=== PATIENT | male | born 1945 | race Caucasian/White ===

== ENCOUNTER 2020-03-31 07:28 | Inpatient (IN) | payer MEDICARE, SELFPAY ==
[2020-03-31] VITALS (13 sets, daily range): BP systolic 108–139; BP diastolic 70–94; PULSE 65–93; RESP 16–29; TEMP 36.8–37.2; O2SAT 92–97; BMI 29.5; BMI 24.1
--- NOTE | 2020-03-31 07:40 | EKG12_ITS ---
Test Reason : SOB Blood Pressure : / mmHG Vent. Rate : 064 BPM Atrial Rate : 064 BPM P-R Int : 180 ms QRS Dur : 078 ms QT Int : 372 ms P-R-T Axes : -01 -06 009 degrees QTc Int : 383 ms Normal sinus rhythm Nonspecific T wave abnormality Abnormal ECG Confirmed by ALAN TORRES, EMORY ([id number]), continuity editor ABDELRAHMAN PEREZ ([id number]) on 04/02/2020 12:59:04 PM Referred By: Confirmed By:EMORY PHILLIPS MD
--- NOTE | 2020-03-31 07:40 | RAD_ITS ---
STUDY: X-RAY CHEST REASON FOR EXAM: Male, 75 years old. Cough, nausea and vomiting, possible aspiration, weakness TECHNIQUE: AP portable upright chest COMPARISON: None. FINDINGS: Background pulmonary hyperlucency consistent with underlying COPD/emphysema. Correlate smoking history. Mild basilar atelectasis. A few tiny radiodense pulmonary nodules are consistent with benign calcified granulomata. There is no acute infiltrate, effusion or pneumothorax. No significant cardiomegaly. There is an expandable prosthetic valve. Mediastinal silhouette, kayla and pleural margins normal. No acute osseous or upper abdominal process. RAD/Chest 1 View (Portable) IMPRESSION: Evidence of underlying COPD/emphysema without acute superimposed cardiopulmonary process. Electronically Signed: Lemuel Gtz MD at 11:00 EDT Tel , Service support ,
--- NOTE | 2020-03-31 07:53 | ED.VISSUMM ---
- ER Visit Summary Date of Service: 03/31/20 Chief Complaint: Vomiting, shortness of breath History of Present Illness: The patient is a 75 M presents [facility] with vomiting and shortness of breath. Patient states he had 2 episodes of vomiting since this morning. He began coughing. group home was concerned that he aspirated. He became short of breath after the vomiting episodes. He denies fever. Denies diarrhea. Denies abdominal pain. He does complain of mild headache and mild myalgias. No known exposure to COVID. He has a history of CHF, COPD, diabetes, hypertension, hypercholesterolemia. Physical Examination: Vitals are stable. Patient is afebrile. 95% on 2 L. Alert no acute distress. HEENT exam is unremarkable. Neck is supple. Lungs are expiratory wheezing bilaterally. Heart is regular rate and rhythm. Abdomen is soft mild left upper quadrant tenderness with no guarding or rebound Extremities are unremarkable. Skin is warm and dry. No focal neurologic deficit. Remainder of exam is unremarkable. Emergency Department Course and Treatment: Patient was given albuterol, Atrovent aerosols. EKG is normal sinus rhythm with nonspecific T wave changes. CBC shows white count 12.0. Chemistries show glucose 131, BUN 25. Lipase 150. Urinalysis with 5-10 white blood cells, positive leukocytes. Urine culture was sent. Troponin is negative. BNP normal. COVID negative. Chest xray shows evidence of underlying COPD/emphysema without acute superimposed cardiopulmonary process. CT abdomen shows colonic fecal retention predominantly within the rectal vault. No small bowel obstruction. Patient had additional vomiting in the ED and was given Zofran IV. He was given Unasyn for possible aspiration. Discussed with the hospitalist for admission. Disposition: Admission Impression: Vomiting, aspiration, UTI This note was generated with [employer] dictation software. It may contain incorrect words, spelling, and punctuation that were not noted in review of the chart prior to signing ED Disposition - Plan for ED Patient:
[2020-03-31] MEDS: Albuterol 2.5 MG/3 ML VIAL.NEB. INHALATION ×3 (08:02)
[2020-03-31] MEDS: Ipratropium/Albuterol Sulfate 3 ML AMPUL.NEB INHALATION ×2 (08:02→18:48)
[2020-03-31 08:34] LABS: Absolute Lymphocyte Count 3.44 X10^3/uL (0.83-4.51); Absolute Neutrophil Count 7.7 X10^3/uL (2.0-7.7); Basophil# 0.03 X10^3/uL; Basophil% 0.3 % (0-1); Eosinophil# 0.05 X10^3/uL; Eosinophils% 0.4 % (0-5); Hematocrit 45.9 % (40-54); Hemoglobin 14.7 g/dL (13.0-16.5); Lymphocyte # 3.44 X10^3/ul (4.0); Lymphocyte % 28.7 % (19-41); Mean Corpuscular Hgb 31.3 pg (27.0-32.0); Mean Corpuscular Volume 97.7 fL (80-94); Mean Platelet Vol. 9.5 fl (6.2-12.0); Monocyte# 0.73 X10^3/uL; Monocyte% 6.1 % (0-10); NRBC Flagged by Analyzer 0 % (0-5); Neutrophil # 7.67 X10^3/uL (2.7-7.7); Neutrophil % 64.1 % (47-70); Platelet Count 250 K/mm3 (150-450); RBC Distribution Width CV 13.5 % (11.6-14.6); RBC Distribution Width SD 48.9 fl (35.1-43.9)
[2020-03-31 08:51] LABS: BNP,B-Type NATRIURETIC PEPTIDE 23.7 pg/mL (0-100)
[2020-03-31 09:29] LABS: ALB/GLOB Ratio 0.7 RATIO (0.9-2.4); AST(SGOT) 25 U/L (15-37); Alanine Aminotransfer ALT/SGPT 15 U/L (16-61); Albumin, Serum 3.6 g/dL (3.2-5.0); Alkaline Phosphatase 101 U/L (45-117); Anion Gap 6 (5-15); BUN 25 mg/dL (7-18); BUN/Creat Ratio 22.1 RATIO (10-20); Calcium,Total 9.7 mg/dL (8.5-10.1); Chloride 102 mmol/L (98-107); Creatinine, Serum 1.13 mg/dL (0.70-1.30); EST Glomerular Filtration Rate 67 mL/min (>60); Est Glom Filt Rate - Afr Amer 81 mL/min (>60); Estimated Creatinine Clearance 48.38 ml/min; Globulin 5.1 g/dL (2.2-4.2); Glucose 131 mg/dL (74-106); Lipase 150 U/L (73-393); Potassium 4.3 mmol/L (3.5-5.1); Protein, Total 8.7 g/dL (6.4-8.2); Sodium Level 138 mmol/L (136-145)
[2020-03-31 10:44] LABS: Bacteria 0 SEEN /hpf (None Seen); Mucous, Urine 0 SEEN /hpf (<or=2+); Squamous Epithelial Cells - UA 0 SEEN /hpf (0-5)
--- NOTE | 2020-03-31 10:50 | CT_ITS ---
STUDY: CT ABDOMEN AND PELVIS WITH CONTRAST REASON FOR EXAM: Male, 75 years old. ABD PAIN, COUGH, N/V, ? ASPIRATION, HX-CHF,HTN,COPD, DB, PREV APPY RADIATION DOSAGE (If Supplied By Facility): CTDIvol = ( 20.27 ) mGy, DLP = ( 857.14 ) mGycm TECHNIQUE: Transaxial images were obtained from the dome of the diaphragm to the symphysis pubis without oral contrast. 100ML ISOVUE 300 was administered. Sagittal and coronal images were reconstructed. Individualized dose optimization techniques were used for this CT. COMPARISON: None. FINDINGS: There are chronic interstitial fibrotic changes of the lung bases. Aortic valve device partially visualized. Normal liver. Normal gallbladder and extrahepatic biliary system. Normal spleen. Normal pancreas. Normal bilateral adrenal glands. Normal right kidney. Normal left kidney. Normal visualized stomach. No dilated small bowel. Significant fecal residue throughout the colon including the rectum which is moderately distended. No perirectal stranding. There is anterior displacement of the urinary bladder via the rectum (sagittal 79). No pneumatosis. There is non-visualization of the appendix. There is diffuse atherosclerotic calcification of the abdominal aorta, without a demonstrated aneurysm. Normal inferior vena cava. Normal retroperitoneum. Normal urinary bladder. Normal abdominal wall. There are diffuse degenerative changes of the visualized lumbar spine. CT/Abdomen/Pelvis W IV Cont ONLY IMPRESSION: 1. Colonic fecal retention predominantly within the rectal vault. No small bowel obstruction. Electronically Signed: Rene Carroll MD (Brooks) at 13:42 EDT , Service support ,
[2020-03-31 10:52] LABS: Color, Urine Yellow (Yellow); Glucose, Dipstick Normal (Normal); Ketone-Dipstick Negative (Negative); Leukocyte Esterase-Dipstick 500 /ul (Negative); Nitrite-Dipstick Negative (Negative); Occult Blood-Urine 50 /ul (Negative); Protein-Dipstick 30 mg/dl (Negative); Urine Bilirubin Dipstick Negative (Negative); Urine Clarity Clear (Clear); Urine Urobilinogen Normal (Normal)
[2020-03-31 10:59] LABS: Red Blood Cells-Urine 0-5 SEEN /hpf (0-5); White Blood Cells 5-10 SEEN /hpf (0-5)
[2020-03-31] MEDS: Ondansetron 4 MG/2 ML Vial IV (11:05)
--- NOTE | 2020-03-31 15:03 | PCM.HP.STD ---
Problem List (1) Chronic heart failure Status: Chronic (2) Diabetes mellitus type 2 Status: Chronic (3) Dyslipidemia Status: Chronic (4) COPD Status: Chronic (5) Coronary artery disease Status: Chronic (6) Valvular heart disease Status: Chronic (7) Possible aspiration Status: Acute History of Present Illness Date of Admission: 03/31/20 Chief Complaint: Nausea, shortness of breath and wheezing. The patient is a 75 with multiple comorbidities but no prior admission in this hospital, valve replacement possible TAVR, intermediate patient was sent from [facility] for nausea, vomiting and shortness of breath. Patient denies chest pressure/pain or fever or chills or recent cough but when patient vomited he had sudden cough and therefore concern for aspiration. In intermediate, blood pressure was 112/63, heart rate 63/min. Pulse ox 95% on 2 L oxygen In ED, patient blood pressure was normal. Patient tachypneic 24 to 28/min, on 2 L of oxygen. Chest x-ray does not show any acute finding but chronic COPD/emphysema. EKG normal sinus rhythm at 64 bpm, QTC 383 ms. Patient started on IV Unasyn for concern of aspiration pneumonia and further admitted. Past Medical History Past Medical History (Chronic Problems): Chronic Problems Chronic heart failure (Chronic) Diabetes mellitus type 2 (Chronic) Dyslipidemia (Chronic) COPD (Chronic) Coronary artery disease (Chronic) Valvular heart disease (Chronic) Allergies No Known Allergies Allergy (Verified 11/30/14 11:58) Home Medications: Ambulatory Orders Medication Instructions Recorded Clopidogrel Bisulfate [Plavix] 75 mg PO DAILY 11/30/14 Liraglutide [Victoza 2-Harry] 11/30/14 Acarbose 100 mg PO DAILY 03/31/20 Aspirin 81 mg PO DAILY 03/31/20 Atorvastatin Calcium [Lipitor] 20 mg PO QHS 03/31/20 Budesonide/Formoterol 160/4.5 1 inhaler PO DAILY 03/31/20 [Symbicort 160/4.5 Mcg Inhaler (SP)] Folic Acid 1 tab PO DAILY 03/31/20 Furosemide 40 mg PO DAILY 03/31/20 Ipratropium/Albuterol Sulfate 3 ml INHALATION Q4H.RT 03/31/20 [Duoneb] Lorazepam [Ativan] 0.5 mg PO DAILY 03/31/20 Methotrexate 2.5 mg PO TU 03/31/20 Pantoprazole Sodium 40 mg PO DAILY 03/31/20 Percocet 5-325 1 tab PO BID 03/31/20 Sertraline HCl 50 mg PO 03/31/20 Spironolactone [Aldactone] 25 mg PO DAILY 03/31/20 Smoking Status: Former smoker - Quit about 20 years ago Alcohol: None Drugs: None Review of Systems Constitutional: Denies: Chills, Fever, Weight Change HEENT: Denies: Head Aches, Sinus Congestion, Sinus Drainage Cardiovascular: Denies: Chest Pain, Palpitations Respiratory: Reports: Cough, Shortness of Breath. Denies: Shortness of breath at rest, Sputum production Gastrointestinal: Reports: Constipation. Denies: Abdominal Pain, Nausea, Vomiting Genitourinary: Denies: Dysuria, Frequency, Urgency Musculoskeletal: Reports: Back Pain, Joint Pain. Denies: Joint Tenderness Skin: Denies: Rash, Wounds Neurological: Reports: Balance problems. Denies: Focal weakness, Numbness, Tingling Psychiatric: Reports: Anxiety, Depression. Denies: Homicidal Ideations, Suicidal Ideations Hematologic/ Lymphatic: Denies: Easy Bruising, Easy Bleeding VTE Information - Inpt Only VTE Present on Admission: No VTE Mechan Device Prophylaxis: None VTE Pharm Prophylaxis ordered?: Yes Patient Problems: Active and Suspected Problems Possible aspiration (Acute) - Physical Exam Vitals/I&O's: Vital Signs Temp Pulse Resp BP Pulse Ox 98.2 F 84 24 H 139/85 H 92 03/31/20 14:25 03/31/20 14:25 03/31/20 14:25 03/31/20 14:25 03/31/20 14:25 Oxygen Flow Rate (L/min) 2 Oxygen Delivery Method Nasal Cannula Weight: 177 lb 0.499 oz Body Mass Index (BMI) 29.5 General: Alert, Oriented x3, Cooperative HEENT: Atraumatic, PERRLA, EOMI, Normocephalic Oral: No Gingival or Mucosal Lesions/ Ulcerations, Dry Mucosa Neck: Supple, No JVD, Negative Carotid Bruits Lungs: No wheeze, No rales, Diminished - Air entry diminished in bilateral lung bases., Rhonchi - Mild expiratory rhonchi at outside Cardiovascular: Regular rate, Regular Rhythm, Normal S1, Normal S2, No murmurs Abdomen: Bowel Sounds Present, Soft, Non Tender, - - Mid epigastric swelling with impulse on coughing Extremities: No edema, Capillary Refill Less than 3 Seconds, - - : No suprapubic tenderness. No recent decrease in urine output. Skin: No rashes, No breakdown Musculoskeletal: No Tenderness to Palpation of Joints or Extremities, Arthritic Changes Neurological: Cranial nerves II-XII grossly intact, Deep Tendon Reflexes 2+/4 and Symmetrical, Neuro grossly intact Psych/Mental Status: Normal Affect, Appropriate Laboratory Results 03/31/20 08:00: Sodium Cancelled, Potassium Cancelled, Chloride Cancelled, Carbon Dioxide Cancelled, Anion Gap Cancelled, BUN Cancelled, Creatinine Cancelled, Estim Creat Clear Calc Cancelled, Est GFR (MDRD) Af Amer Cancelled, Est GFR (MDRD) Non-Af Cancelled, BUN/Creatinine Ratio Cancelled, Glucose Cancelled, Calcium Cancelled, Total Bilirubin Cancelled, AST Cancelled, ALT Cancelled, Alkaline Phosphatase Cancelled, Troponin I Cancelled, Total Protein Cancelled, Albumin Cancelled, Globulin Cancelled, Albumin/Globulin Ratio Cancelled 03/31/20 08:12: COVID-19 (GHADA) Not Detected 03/31/20 08:25: WBC 12.0 H, RBC 4.70, Hgb 14.7, Hct 45.9, MCV 97.7 H, MCH 31.3, MCHC 32.0, RDW Std Deviation 48.9 H, RDW Coeff of Johnathan 13.5, Plt Count 250, MPV 9.5, Immature Gran % (Auto) 0.400, Neut % (Auto) 64.1, Lymph % (Auto) 28.7, Wilcox % (Auto) 6.1, Eos % (Auto) 0.4, Baso % (Auto) 0.3, Absolute Neuts (auto) 7.7, Absolute Lymphs (auto) 3.44, Nucleated RBC % 0 03/31/20 08:25: B-Natriuretic Peptide 23.7 03/31/20 08:25: Sodium 138, Potassium 4.3, Chloride 102, Carbon Dioxide 30.0, Anion Gap 6, BUN 25 H, Creatinine 1.13, Estim Creat Clear Calc 48.38, Est GFR (MDRD) Af Amer 81, Est GFR (MDRD) Non-Af 67, BUN/Creatinine Ratio 22.1 H, Glucose 131 H, Calcium 9.7, Total Bilirubin 0.50, AST 25, ALT 15 L, Alkaline Phosphatase 101, Troponin I < 0.015, Total Protein 8.7 H, Albumin 3.6, Globulin 5.1 H, Albumin/Globulin Ratio 0.7 L 03/31/20 08:25: Lipase 150 03/31/20 10:36: Urine Color Yellow, Urine Clarity Clear, Urine pH 6.0, Ur Specific [place] 1.010, Urine Protein 30 H, Urine Glucose (UA) Normal, Urine Ketones Negative, Urine Occult Blood 50 H, Urine Nitrite Negative, Urine Bilirubin Negative, Urine Urobilinogen Normal, Ur Leukocyte Esterase 500 H, Urine RBC 0-5 SEEN, Urine WBC 5-10 SEEN, Ur Squamous Epith Cells 0 SEEN, Urine Bacteria 0 SEEN, Urine Mucus 0 SEEN Current Medications Sodium Chloride () 250 mls @ 15 mls/hr IV .[id number] PRN PRN Reason: Saline Flush Last Admin: 03/31/20 14:35 Dose: 15 mls/hr Documented by: Sodium Chloride () 250 mls @ 15 mls/hr IV .[id number] PRN PRN Reason: Additional IVPB Infusion Assessment/Plan All Active Problems Possible aspiration (Acute) The patient is a 75 with multiple comorbidities but no prior admission in this hospital, valve replacement possible TAVR, intermediate patient was sent from [facility] for nausea, vomiting and shortness of breath with concern for aspiration 1. Possible aspiration/aspiration pneumonitis or pneumonia: Patient is being admitted in PCU. Speech and swallow evaluation. Empirically patient is started on IV Unasyn. Pneumonia work-up. If patient spikes fever, will need blood cultures x2. COVID-19 PCR negative. 2. COPD: No exacerbation. Continue DuoNeb every 4 hourly with albuterol PRN. Incentive spirometry and PEP. Mucinex 1200 mg p.o. twice daily. 3. Cardiac conditions: CHF, type, class and etiology unclear possible ischemic type. Valvular heart disease possible aortic valve. As per history, it seems patient might have TAVR, bovine prosthetic valve about 2 years ago in [facility]. 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 He said he had cardiac cath which did not show any major blockage and his doctor told him he does not need stent. He did not had any recent stress or echo. 2D echo is ordered for tomorrow. Patient is on aspirin Plavix, Lasix, spironolactone, and atorvastatin. There is no cardiac test record available in our system. 4. Diabetes mellitus type 2: Accu-Chek before meals and at bedtime cover with meal sliding scale 5. Hypertension: Patient states his blood pressure is controlled. VTE prophylaxis: On Lovenox 40 mg SQ daily Living will/advanced directive/end of life care: Patient does not have living will or advanced directive. After discussion of procedures involved with full code, DNR CC arrest and DNR CC, the patient opted for DNR-CC Arrest with no intubation. Patient was diagnosed with recent liver cancer and she is in hospice. Patient does not want artificial life support including intubation, tube feed, ventilator and/chest compression, central venous catheter, vasopressor and DC shock if needed Total time spent in [id number] encounter in discussion of advanced directive 16 minutes. Clinical Impression(s) from Imaging Studies Chest X-Ray 03/31/20 07:40 IMPRESSION: Evidence of underlying COPD/emphysema without acute superimposed cardiopulmonary process. Abdomen/Pelvis CT 03/31/20 10:50 IMPRESSION: 1. Colonic fecal retention predominantly within the rectal vault. No small bowel obstruction. Inpatient E&M: 41597 Init Hosp L3 Procedures: 82626 Advncd Care Plan 30 Min
[2020-03-31] MEDS: 0.9% Normal Saline 1,000 ML 100 ML IV (15:43)
[2020-03-31 15:44] LABS: Magnesium 2.4 mg/dL (1.6-2.6)
[2020-03-31] MEDS: Enoxaparin 40 MG/0.4 ML Syringe SC (17:11)
[2020-03-31 18:17] LABS: M R Staph aureus DNA By PCR Negative (Negative); Probe Check PASS; Specimen Processing Control PASS
[2020-03-31] MEDS: guaiFENesin 1,200 MG Tablet 1200 MG PO (20:55)
[2020-03-31] MEDS: Atorvastatin Calcium 20 MG Tablet PO (20:56)
[2020-03-31] MEDS: Acetaminophen 325 MG Tablet 650 MG PO (21:39)
[2020-03-31] MEDS: oxyCODONE 5 MG Tablet PO (21:43)
[2020-03-31] MEDS: proCHLORPERazine 10 MG/2 ML Vial 5 MG IV (23:15)
[2020-04-01] VITALS (13 sets, daily range): BP systolic 108–127; BP diastolic 59–78; PULSE 70–88; RESP 16–20; TEMP 36.6–36.9; O2SAT 93–96
[2020-04-01] MEDS: Ondansetron 4 MG/2 ML Vial IV (02:32)
[2020-04-01] MEDS: proCHLORPERazine 10 MG/2 ML Vial 5 MG IV (05:28)
--- NOTE | 2020-04-01 05:55 | ECHOCS_ITS ---
Reason For Study: Heart Failure Procedure This was a 2D Doppler, Color Flow transthoracic echocardiogram. The study was technically difficult. Contrast injection was performed. Patient scanned supine. Exam performed portable in patient room. Left Ventricle Normal LV size. The estimated ejection fraction is 75 %. Diastolic function is indeterminate. No regional wall motion abnormalities noted. Right Ventricle Normal RV size. Normal systolic function. Atria Normal left atrium. Normal right atrium. No doppler evidence for ASD. Mitral Valve There is no mitral valve stenosis. There is no mitral regurgitation noted. Tricuspid Valve There is no tricuspid stenosis. Unable to estimate RV systolic pressure due to inadequate jet, pulmonary artery pressure probably normal. Aortic Valve Possible TAVR valve with no significant stenosis or regurgitation. There is no aortic stenosis. No aortic valve insufficiency. Pulmonic Valve There is no pulmonic valvular stenosis. No pulmonic valve insufficiency. Great Vessels Normal aortic root. Pericardium/Pleural No pericardial effusion. Medication Diluted definity 3ml given slow IV push to enhance endocardial definition. MMode/2D Measurements & Calculations LVIDd: 4.7 cm IVSd: 1.3 cm LVOT diam: 2.0 cm LVIDs: 3.4 cm LVPWd: 1.4 cm FS: 27.9 % LVOT area: 3.2 cm2 LAV(MOD-sp2): 49.6 ml Time Measurements MV dec time: 0.27 sec Doppler Measurements & Calculations MV E max roderick: 80.7 cm/sec Lat Peak E' Roderick: 5.7 cm/sec Med Peak E' Roderick: 4.1 cm/sec MV A max roderick: 164.6 cm/sec E/E' lat: 14.0 E/E' med: 19.8 MV E/A: 0.49 MV V2 max: 166.9 cm/sec MV P1/2t max roderick: 87.4 cm/sec Ao V2 max: 240.1 cm/sec MV max P.1 mmHg MV P1/2t: 90.5 msec Ao max P.1 mmHg MV V2 mean: 75.6 cm/sec Ao V2 mean: 174.0 cm/sec MV mean P.9 mmHg MV dec slope: 282.7 cm/sec2 Ao mean P.7 mmHg MV V2 VTI: 33.9 cm MVA(P1/2t): 2.4 cm2 Ao V2 VTI: 51.4 cm MVA(VTI): 3.0 cm2 NORY(I,D): 1.9 cm2 NORY(V,D): 2.2 cm2 LV V1 max: 160.1 cm/sec SV(LVOT): 100.1 ml PA V2 max: 116.5 cm/sec LV V1 max P.2 mmHg LV V1 mean P.4 mmHg LV V1 mean: 108.3 cm/sec LV V1 VTI: 30.8 cm Interpretation Summary The study was technically difficult. Contrast injection was performed. The estimated ejection fraction is 75 %. Diastolic function is indeterminate. Contrast injection was performed. Ordering Physician: Sumeet Calixto Referring Physician: Seb Cheek Performed By: Pepe Fu RCS
[2020-04-01 06:04] LABS: Absolute Lymphocyte Count 1.27 X10^3/uL (0.83-4.51); Absolute Neutrophil Count 9.5 X10^3/uL (2.0-7.7); Basophil# 0.01 X10^3/uL; Basophil% 0.1 % (0-1); Hematocrit 42.2 % (40-54); Hemoglobin 13.3 g/dL (13.0-16.5); Lymphocyte # 1.27 X10^3/ul (4.0); Lymphocyte % 10.8 % (19-41); Mean Corp Hgb Conc 31.5 g/dL (32-36); Mean Corpuscular Hgb 31.4 pg (27.0-32.0); Mean Corpuscular Volume 99.5 fL (80-94); Mean Platelet Vol. 9.6 fl (6.2-12.0); Monocyte# 0.92 X10^3/uL; Monocyte% 7.8 % (0-10); NRBC Flagged by Analyzer 0 % (0-5); Neutrophil # 9.48 X10^3/uL (2.7-7.7); Neutrophil % 80.8 % (47-70); POSITIVE MORPHOLOGY YES; Platelet Count 236 K/mm3 (150-450); RBC Distribution Width CV 13.5 % (11.6-14.6); RBC Distribution Width SD 49.2 fl (35.1-43.9); Red Blood Count 4.24 M/mm3 (4.6-6.2); White Blood Count 11.7 K/mm3 (4.4-11.0)
[2020-04-01 06:15] LABS: Differential Indicated SCAN CRITERIA MET
[2020-04-01 06:27] LABS: Differential Comment SCANNED
[2020-04-01 06:33] LABS: Anion Gap 6 (5-15); BUN 29 mg/dL (7-18); BUN/Creat Ratio 28.7 RATIO (10-20); Calcium,Total 9.1 mg/dL (8.5-10.1); Chloride 106 mmol/L (98-107); Creatinine, Serum 1.01 mg/dL (0.70-1.30); EST Glomerular Filtration Rate 76 mL/min (>60); Est Glom Filt Rate - Afr Amer 92 mL/min (>60); Estimated Creatinine Clearance 64.25 ml/min; Glucose 140 mg/dL (74-106); Potassium 3.6 mmol/L (3.5-5.1); Sodium Level 140 mmol/L (136-145)
[2020-04-01] MEDS: Ipratropium/Albuterol Sulfate 3 ML AMPUL.NEB INHALATION ×3 (06:43→15:08)
[2020-04-01] MEDS: Enoxaparin 40 MG/0.4 ML Syringe SC (09:50)
[2020-04-01] MEDS: Clopidogrel Bisulfate 75 MG Tablet PO (09:51)
[2020-04-01] MEDS: Furosemide 40 MG Tablet PO (09:51)
[2020-04-01] MEDS: Aspirin 81 MG TAB.CHEW PO (09:51)
[2020-04-01] MEDS: Donepezil HCl 5 MG Tablet PO (09:51)
[2020-04-01] MEDS: Senna/Docusate Sodium 1 Tablet 2 TABLET PO (09:51)
[2020-04-01] MEDS: Folic Acid 1 MG Tablet 2 MG PO (09:51)
[2020-04-01] MEDS: Sertraline 50 MG Tablet PO (09:51)
[2020-04-01] MEDS: Bisoprolol Fumarate 5 MG Tablet PO (09:51)
[2020-04-01] MEDS: Pantoprazole Sodium 40 MG Tablet PO (09:51)
[2020-04-01] MEDS: LORazepam 0.5 MG Tablet 0.25 MG PO (09:52)
[2020-04-01] MEDS: guaiFENesin 1,200 MG Tablet 1200 MG PO (09:52)
[2020-04-01] MEDS: Spironolactone 25 MG Tablet PO (10:00)
--- NOTE | 2020-04-01 11:20 | PCM.TXEXTCAR ---
- Diet 03/31/20 15:12 Diet: Cardiac - Heart Healthy Food consistency:: Regular Liquid Consistency:: Regular/Thin - Routine Orders/Code Status Suppository Type: Dulcolax 10mg Suppository Frequency: Daily PRN Routine Lab Work: CBC, BMP - WEEKLY ON DIURETIC Code Status: DNRCC-A - NO Intubation - Therapies Weight Bearing: Weight bearing as tolerated Extremity Affected:: Bilateral Lower Physical Therapy: Eval and Treat Occupational Therapy: Eval and Treat Speech Therapy: Eval and Treat - Problem/Diagnosis (1) Chronic heart failure Status: Chronic Current Visit: Yes (2) Diabetes mellitus type 2 Status: Chronic Current Visit: Yes (3) Dyslipidemia Status: Chronic Current Visit: Yes (4) COPD Status: Chronic Current Visit: Yes (5) Coronary artery disease Status: Chronic Current Visit: Yes (6) Valvular heart disease Status: Chronic Current Visit: Yes (7) Possible aspiration Status: Acute Current Visit: Yes - Allergies/Procedures Done in Hospital Allergies/Adverse Reactions: Allergies No Known Allergies Allergy (Verified 11/30/14 11:58) - Type of Care/Length of Stay Estimated LOS: Convalescent Care Less Than 30 days Type of Care Needed: Skilled Rehab Potential: Good Prognosis: Good - Additional Orders/Day of Discharge Additional Orders: Patient can follow-up with his own automobile club travel counselor who has moved to the [place] or can follow Dr. castellon. Patient has seen his automobile club travel counselor last time probably in March 2019 Day of Discharge: 04/01/20 - Follow Up Care Primary Care Physician: Gautam Ahmadi DO [COURTESY STAFF PHYSICIAN] - Please follow up with your Primary Care Physician in: in 2 weeks Please Follow Up With: Christos Castellon MD When: in 4 weeks
--- NOTE | 2020-04-01 13:03 | CASEMGMT ---
Patient is from [place] in [facility]. SEVERINO called Usha at [place] and let her know patient may be returning today. SW also verified with patient that his plan is to return to [place] and he said it is his plan. Mary TRUONG MSW
--- NOTE | 2020-04-01 13:41 | PHA.DC.MR ---
Pharmacy Service has performed discharge medication reconciliation for this patient upon transfer to [facility]. The patient's discharge medication list was reviewed for discrepancies and discrepancies were resolved. Home Medications Clopidogrel Bisulfate [Plavix] 75 mg PO DAILY 11/30/14 Acarbose 100 mg PO BID 03/31/20 Aspirin 81 mg PO DAILY 03/31/20 Atorvastatin Calcium [Lipitor] 20 mg PO QHS 03/31/20 Bisoprolol Fumarate 5 mg PO DAILY 03/31/20 Budesonide/Formoterol 160/4.5 [Symbicort 160/4.5 Mcg Inhaler (SP)] 2 puff INHALATION BID 03/31/20 Donepezil HCl [Aricept] 5 mg PO DAILY 03/31/20 Folic Acid 2 mg PO DAILY 03/31/20 Furosemide 40 mg PO BID 03/31/20 Ipratropium/Albuterol Sulfate [Duoneb] 3 ml INHALATION Q4H.RT 03/31/20 Lorazepam [Ativan] 0.25 mg PO DAILY 03/31/20 Methotrexate 2.5 mg PO TU 03/31/20 Pantoprazole Sodium 40 mg PO BID 03/31/20 Percocet 5-325 1 tab PO BID 03/31/20 Potassium 20 meq PO DAILY 03/31/20 Sertraline HCl 50 mg PO DAILY 03/31/20 Simethicone 80 mg PO TID 03/31/20 Tiotropium [place] [Spiriva] 18 mcg IH DAILY 03/31/20 Amoxicillin/Potassium Clav [Augmentin 875-125 Tablet] 1 ea PO BID #7 tab 04/01/20 Guaifenesin [Mucinex] 1,200 mg PO BID #14 tab 04/01/20 Psyllium [Metamucil] 1 packet PO DAILY packet 04/01/20 Senna/Docusate Sodium [Senokot-S] 2 tab PO BID tab 04/01/20
--- NOTE | 2020-04-01 14:15 | CASEMGMT ---
SEVERINO faxed updates including COVID test results earlier today. Mary TRUONG SHEAR OPERATOR
--- NOTE | 2020-04-01 15:20 | CHAPLAIN ---
Type of Pastoral Visit _x__ Initial Visit ___ Follow-up Visit ___ On-call Visit ___ General Patient Visit ___ Spiritual Assessment ___ Family Conference ___ Bereavement ___ Rapid Response ___ Code Blue ___ Other (describe below) Pastoral Care Referral From _x__ Patient ___ Family ___ Nurse ___ Physician ___ Unionmelt Operator ___ Testing Lead ___ Other (describe below) Sacrament/Intervention _x__ Active listening ___ Anointing ___ Nondenominational ___ Bereavement ___ Communion ___ Cindy exploration ___ _x__ Life review _x__ Prayer ___ Reconciliation ___ Sacrament of Sick _x__ Supportive presence ___ Wedding ___ Other (describe below) Pastoral Comments patient very talkative and open to spiritual care support; pt knew that this dye weigher had visited his when she was a pt here; spouse is at end stage cancer and his concern is for her and to be back together in [facility]; pt talks about life and how he has been blessed; pt states that we know where we are going but we just want to be together while we can here
--- NOTE | 2020-04-01 15:29 | CASEMGMT ---
SEVERINO called [facility] and put patient on the will call list for cot transport back to [place]. Mary TRUONG MSW
--- NOTE | 2020-04-01 17:05 | DS.PCM_ITS ---
Discharge Date and Diagnosis - Problem List Patient Problems: Active and Suspected Problems Possible aspiration (Acute) Date of Admission: 03/31/20 Date of Discharge: 04/01/20 - Primary Discharge Diagnosis Acute Problems: Active Problems Possible aspiration (Acute) Aspiration pneumonitis. - Secondary Discharge Diagnosis Chronic Problems: Chronic Problems Chronic heart failure (Chronic) Diabetes mellitus type 2 (Chronic) Dyslipidemia (Chronic) COPD (Chronic) Coronary artery disease (Chronic) Valvular heart disease (Chronic) Hospital Course and Treatment Imaging Results: 04/01/20 05:55 Echo Complete W/ Contrast [ECHO] AM (NON MEDS) Summary of Care Provided: [] The patient is a 75 with multiple comorbidities but no prior admission in this hospital, valve replacement possible TAVR, [place] [facility] patient was sent from [facility] for nausea, vomiting and shortness of breath with concern for aspiration 1. Possible aspiration/aspiration pneumonitis: Patient is being admitted in PCU. Patient was evaluated speech therapist and no overt signs and symptoms of aspiration was found. Recommended regular texture food with thin liquid. Empirically, patient discharged on Augmentin to complete a total of 5 days of antibiotics. Respiratory panel and urinary antigens are negative. Urine culture shows mixed gram-positive and gram-negative organisms suggestive of contamination. COVID-19 PCR negative. 2. COPD: No exacerbation. Continue DuoNeb every 4 hourly with albuterol PRN. Incentive spirometry and PEP. Mucinex 1200 mg p.o. twice daily. 3. Cardiac conditions: CHF, type, class and etiology unclear possible ischemic type. Valvular heart disease possible aortic valve. 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 He said he had cardiac cath which did not show any major blockage and his doctor told him he does not need stent. He did not had any recent stress or echo. Patient is on aspirin Plavix, Lasix, spironolactone, and atorvastatin. Patient had 2D echo done on 04/01/2020 Interpretation Summary The study was technically difficult. Contrast injection was performed. The estimated ejection fraction is 75 %. Possible TAVR with no significant stenosis or regurgitation. Diastolic function is indeterminate. Contrast injection was performed. 4. Diabetes mellitus type 2: Accu-Chek before meals and at bedtime cover with meal sliding scale 5. Hypertension: Patient states his blood pressure is controlled. VTE prophylaxis: On Lovenox 40 mg SQ daily Patient was evaluated by PT and OT recommended additional therapy. Patient is [facility] [facility] resident. Patient is discharged to SNF. I discussed the hospital stay and clinical updates were given to patient's son, Mr. Shen Morris [phone] Living will/advanced directive/end of life care: Patient does not have living will or advanced directive. After discussion of procedures involved with full code, DNR CC arrest and DNR CC, the patient opted for DNR-CC Arrest with no intubation. Patient was diagnosed with recent liver cancer and she is in hospice. Patient does not want artificial life support including intubation, tube feed, ventilator and/chest compression, central venous catheter, vasopressor and DC shock if needed Discharge medication reconciliation done. Discharge follow-up instructions completed. Discharge process discussed with the patient and all questions were answered to patient's satisfaction. Patient was admitted as inpatient but was discharged because of sooner recovery than expected at time of admission. Total time spent, exact 35 minutes on discharge meds reconciliation, examination, coordination of care with nurses and ancillary staff, review of imaging and blood test and discussion with the patient on follow-up instructions Patient Problems: Active and Suspected Problems Possible aspiration (Acute) Objective: Seen and examined. Patient heart rate and blood pressure control. On baseline 2 L of oxygen. Patient denies any swallowing difficulty. Patient evaluated by speech therapist and recommended regular texture food with clear liquid. Patient is in [place] [facility] and has baseline lower extremity weakness. General: Alert, Oriented x3, Cooperative HEENT: Atraumatic, PERRLA, EOMI, Normocephalic Oral: No Gingival or Mucosal Lesions/ Ulcerations, Dry Mucosa Neck: Supple, No JVD, Negative Carotid Bruits Lungs: No wheeze, No rales, Diminished - Air entry diminished in bilateral lung bases., Rhonchi - Mild expiratory rhonchi at outside Cardiovascular: Regular rate, Regular Rhythm, Normal S1, Normal S2, No murmurs Abdomen: Bowel Sounds Present, Soft, Non Tender, Mid epigastric swelling with impulse on coughing Extremities: No edema, Capillary Refill Less than 3 Seconds : No suprapubic tenderness. Patient has chronic urine incontinence and moderate urine amount Skin: No rashes, No breakdown Musculoskeletal: No Tenderness to Palpation of Joints or Extremities, Arthritic Changes Neurological: Deep Tendon Reflexes 2+/4 and Symmetrical, Neuro grossly intact. Patient has chronic right-sided facial droop but denies history of a stroke. Psych/Mental Status: Normal Affect, Appropriate - Physical Exam Vitals/I&O's: Vital Signs Temp Pulse Resp BP Pulse Ox 98.0 F 88 20 H 117/76 93 04/01/20 09:50 04/01/20 11:01 04/01/20 11:01 04/01/20 09:50 04/01/20 10:17 Oxygen Flow Rate (L/min) 2 Oxygen Delivery Method Nasal Cannula Weight: 167 lb 1.766 oz Body Mass Index (BMI) 24.1 Intake and Output for Last 24 Hours 03/30/20 03/31/20 04/01/20 23:59 23:59 23:59 Intake Total 440.25 / 440.25 1606 / 1606 Output Total 175 / 175 Balance 265.25 / 265.25 1606 / 1606 Microbiology Past 72 Hours 03/31/20 10:36 Interface Orders Urine Culture - Preliminary Mixed Gram Pos & Gram Neg Org 03/31/20 15:50 Mucosa - Nasopharyngeal Respiratory Panel (PCR) - Final 03/31/20 10:36 Urine, Random Streptococcus pneumoniae Antigen (M - Final 03/31/20 10:30 Urine, Random Legionella Antigen - Final Laboratory Results 03/31/20 08:12: COVID-19 (GHADA) Not Detected 03/31/20 08:25: Magnesium 2.4 03/31/20 16:20: MRSA (PCR) Negative 04/01/20 05:20: WBC 11.7 H, RBC 4.24 L, Hgb 13.3, Hct 42.2, MCV 99.5 H, MCH 31.4, MCHC 31.5 L, RDW Std Deviation 49.2 H, RDW Coeff of Johnathan 13.5, Plt Count 236, MPV 9.6, Immature Gran % (Auto) 0.500, Neut % (Auto) 80.8 H, Lymph % (Auto) 10.8 L, [place] % (Auto) 7.8, Eos % (Auto) 0.0, Baso % (Auto) 0.1, Absolute Neuts (auto) 9.5 H, Absolute Lymphs (auto) 1.27, Nucleated RBC % 0, Differential Comment SCANNED 04/01/20 05:20: Sodium 140, Potassium 3.6, Chloride 106, Carbon Dioxide 28.0, Anion Gap 6, BUN 29 H, Creatinine 1.01, Estim Creat Clear Calc 64.25, Est GFR (MDRD) Af Amer 92, Est GFR (MDRD) Non-Af 76, BUN/Creatinine Ratio 28.7 H, Glucose 140 H, Calcium 9.1 Current Medications Acetaminophen (Tylenol) 650 mg PO Q6H PRN PRN PRN Reason: Pain Score 1-10/Temp > 100.7 F Last Admin: 03/31/20 21:39 Dose: 650 mg Documented by: Al Hydroxide/Mg Hydroxide (Mylanta Ii) 30 ml PO Q6H PRN PRN PRN Reason: Gastric Burning Albuterol Sulfate (Ventolin Aerosols) 2.5 mg INHALATION Q2H PRN PRN PRN Reason: SOB/Wheezing Albuterol/Ipratropium (Duoneb) 3 ml INHALATION Q4H.RT [facility] Last Admin: 04/01/20 11:01 Dose: 3 ml Documented by: Aspirin (Aspirin, Baby) 81 mg PO DAILY@0800 [facility] Last Admin: 04/01/20 09:51 Dose: 81 mg Documented by: Atorvastatin Calcium (Lipitor) 20 mg PO QHS [facility] Last Admin: 03/31/20 20:56 Dose: 20 mg Documented by: Bisacodyl (Dulcolax) 5 mg PO DAILY PRN PRN PRN Reason: SEVERE Constipation Bisoprolol Fumarate (Zebeta) 5 mg PO DAILY [facility] Last Admin: 04/01/20 09:51 Dose: 5 mg Documented by: Clopidogrel Bisulfate (Plavix) 75 mg PO DAILY [facility] Last Admin: 04/01/20 09:51 Dose: 75 mg Documented by: Donepezil HCl (Aricept) 5 mg PO DAILY [facility] Last Admin: 04/01/20 09:51 Dose: 5 mg Documented by: Enoxaparin Sodium (Lovenox) 40 mg SC DAILY [facility] Last Admin: 04/01/20 09:50 Dose: 40 mg Documented by: Folic Acid (Folic Acid) 2 mg PO DAILYCM [facility] Last Admin: 04/01/20 09:51 Dose: 2 mg Documented by: Furosemide (Lasix) 40 mg PO DAILY [facility] Last Admin: 04/01/20 09:51 Dose: 40 mg Documented by: Guaifenesin (Mucinex) 1,200 mg PO BID [facility] Last Admin: 04/01/20 09:52 Dose: 1,200 mg Documented by: Sodium Chloride () 250 mls @ 15 mls/hr IV .[id number] PRN PRN Reason: Saline Flush Last Infusion: 03/31/20 19:00 Dose: 0 mls/hr Documented by: Sodium Chloride () 250 mls @ 15 mls/hr IV .[id number] PRN PRN Reason: Additional IVPB Infusion Ampicillin Sodium/Sulbactam (Sodium 3 gm/ Sodium Chloride) 112 mls @ 150 mls/hr IV Q6 [facility] Stop: 04/07/20 18:01 Last Infusion: 04/01/20 11:50 Dose: Infused Documented by: Lorazepam (Ativan) 0.25 mg PO DAILY [facility] Last Admin: 04/01/20 09:52 Dose: 0.25 mg Documented by: Melatonin (Melatonin) 3 mg PO QHS PRN PRN PRN Reason: INSOMNIA Morphine Sulfate () 2 mg IV Q3H PRN PRN PRN Reason: Pain Score 6-10 Nitroglycerin (Nitrostat) 0.4 mg SUBLINGUAL Q5M PRN PRN Reason: CARDIAC/CHEST PAIN Ondansetron HCl (Zofran) 4 mg IV Q6H PRN PRN PRN Reason: nausea,emesis Last Admin: 04/01/20 02:32 Dose: 4 mg Documented by: Oxycodone HCl (Oxyir) 5 mg PO Q4H PRN PRN PRN Reason: Pain Score 4-5 Last Admin: 03/31/20 21:43 Dose: 5 mg Documented by: Pantoprazole Sodium (Protonix) 40 mg PO DAILY [facility] Last Admin: 04/01/20 09:51 Dose: 40 mg Documented by: Potassium Chloride (K-Dur) [facility] Last Admin: 04/01/20 09:51 Dose: 40 meq Documented by: Prochlorperazine Edisylate (Compazine Iv) 5 mg IV Q4H PRN PRN PRN Reason: Breakthrough Nausea/Vomiting Last Admin: 04/01/20 05:28 Dose: 5 mg Documented by: Psyllium Hydrophilic Mucilloid (Metamucil) 1 packet PO DAILY [facility] Last Admin: 04/01/20 09:52 Dose: Not Given Documented by: Senna/Docusate Sodium (Senokot-S, María-Colace) 2 tablet PO BID [facility] Last Admin: 04/01/20 09:51 Dose: 2 tablet Documented by: Sertraline HCl (Zoloft) 50 mg PO DAILY [facility] Last Admin: 04/01/20 09:51 Dose: 50 mg Documented by: Simethicone (Mylicon) 80 mg PO TID [facility] Last Admin: 04/01/20 05:13 Dose: 80 mg Documented by: Spironolactone (Aldactone) 25 mg PO DAILY [facility] Last Admin: 04/01/20 10:00 Dose: 25 mg Documented by: Home Medications: Medications to take at Discharge Clopidogrel Bisulfate [Plavix] 75 mg PO DAILY 11/30/14 Acarbose 100 mg PO BID 03/31/20 Aspirin 81 mg PO DAILY 03/31/20 Atorvastatin Calcium [Lipitor] 20 mg PO QHS 03/31/20 Bisoprolol Fumarate 5 mg PO DAILY 03/31/20 Budesonide/Formoterol 160/4.5 [Symbicort 160/4.5 Mcg Inhaler (SP)] 2 puff INHALATION BID 03/31/20 Donepezil HCl [Aricept] 5 mg PO DAILY 03/31/20 Folic Acid 2 mg PO DAILY 03/31/20 Furosemide 40 mg PO BID 03/31/20 Ipratropium/Albuterol Sulfate [Duoneb] 3 ml INHALATION Q4H.RT 03/31/20 Lorazepam [Ativan] 0.25 mg PO DAILY 03/31/20 Methotrexate 2.5 mg PO TU 03/31/20 Pantoprazole Sodium 40 mg PO BID 03/31/20 Percocet 5-325 1 tab PO BID 03/31/20 Potassium 20 meq PO DAILY 03/31/20 Sertraline HCl 50 mg PO DAILY 03/31/20 Simethicone 80 mg PO TID 03/31/20 Tiotropium [place] [Spiriva] 18 mcg IH DAILY 03/31/20 Amoxicillin/Potassium Clav [Augmentin 875-125 Tablet] 1 ea PO BID #7 tab 04/01/20 Guaifenesin [Mucinex] 1,200 mg PO BID #14 tab 04/01/20 Psyllium [Metamucil] 1 packet PO DAILY packet 04/01/20 Senna/Docusate Sodium [Senokot-S] 2 tab PO BID tab 04/01/20 Following Prescriptions Were Given to Patient: Amoxicillin/Potassium Clav [Augmentin 875-125 Tablet] 1 ea PO BID #7 tab Transmission Status: Received by [facility] Guaifenesin [Mucinex] 1,200 mg PO BID #14 tab Transmission Status: Received by [facility] Primary Care Physician: Gautam Ahmadi DO [COURTESY STAFF PHYSICIAN] - Please follow up with your Primary Care Physician in: in 2 weeks Please Follow Up With: Christos Mendoza MD When: in 4 weeks Medical Necessity - Tobacco Use Smoking Status: Former smoker - Quit about 20 years ago Meaningful Use Info Meaningful Use Diagnoses (Choose all that apply): None applicable Inpatient E&M: [id number] [facility]
--- NOTE | 2020-04-01 17:24 | NURSING ---
Report called to FARSHAD Poe at [facility] in [place]
== END 2020-04-01 18:48 | disposition skilled nursing facility (03) | DRG 179 ==
LOC: ED 13:57 → PCU 15:06
PROVIDERS: Admitting Provider Internal Medicine; Emergency Provider Emergency Medicine; PCP Student in an Organized Health Care Education/Training Program; Visit Provider Internal Medicine
DX: J69.0 Pneumonitis due to inhalation of food and vomit (principal); I11.0 Hypertensive heart disease with heart failure; I15.0 Renovascular hypertension; J44.9 Chronic obstructive pulmonary disease, unspecified; E11.9 Type 2 diabetes mellitus without complications; I25.10 Atherosclerotic heart disease of native coronary artery without angina pectoris; Z79.51 Long term (current) use of inhaled steroids; Z79.899 Other long term (current) drug therapy; Z87.891 Personal history of nicotine dependence; Z66 Do not resuscitate
CPT/HCPCS: 36415; 71045; 74177; 80048; 80053; 81001; 83690; 83735; 83880; 84484; 85025; 87086; 87088; 87449; 87633; 87635; 87641; 92610; 93005; 93306; 94640; 94667; 94668; 97162; 97166; 99251; 99285; J7030; J7050; Q9957; Q9967; A4216; C8929; G0463; J0295; J2405; U0003